=== PATIENT | male | born 1985 | race Hispanic/Latino ===

== ENCOUNTER 2016-08-09 13:53 | Emergency (ER) | payer SELFPAY ==
[~2016-08-09] VITALS: Ht 175.3 cm; Wt 90.0 kg
[~2016-08-09 13:53] MED LIST: AMOXICILLIN500 MG PO
[2016-08-09 14:07] VITALS: BP 132/76
== END 2016-08-09 14:35 | disposition home or self-care (01) | DRG 950 ==
LOC: ED 13:53
DX: S61.211D Laceration without foreign body of left index finger without damage to nail, subsequent encounter (principal); F17.210 Nicotine dependence, cigarettes, uncomplicated; W31.9XXD Contact with unspecified machinery, subsequent encounter; Y92.89 Other specified places as the place of occurrence of the external cause